=== PATIENT | female | born 1970 | race Caucasian/White ===

== ENCOUNTER 2020-02-25 07:53 | Inpatient (IN) ==
--- NOTE | 2020-02-25 08:17 | DR.URIAD ---
HPI Time Seen Time Seen by Provider: 02/25/20 08:17 HPI Comment HPI Comment: PATIENT RECENTLY DIAGNOSED WITH COVID 19, 5 DAYS AGO COMPLAINS OF INCREASING DYSPNEA X 2 DAYS ASSOCIATED WITH A DRY COUGH. PATIENT PLACED ON MEDROL DOSPAK WITH NO RELIEF, DENIES FEVER OR CHILLS OR CHEST PAIN. HAS MARKED EXERTIONAL DYSPNEA. Complaint Chief Complaint Doctors Comments: SHORTNESS OF BREATH, COVID POSITIVE COVID-19 Has patient experienced Coronavirus symptoms: Yes Quality Quality of Cough: Nonproductive Associated Signs and Symptoms Other Signs and Symptoms: Shortness of Breath PMH PMH Past Medical History Comment: NEGATIVE Surgical History: ROS Review of Systems Constitutional: See HPI, Malaise and Weakness Eyes: No Symptoms Reported ENTM: No Symptoms Reported Respiratoy: See HPI, Dry Cough and Short of Breath (MARKED EXERTIONAL DYSPNEA) Cardiovascular: No Symptoms Reported Gastrointestinal/Abdominal: No Symptoms Reported Genitourinary: No Symptoms Reported Neurological: No Symptoms Reported Musculoskeletal: No Symptoms Reported Integumentary: No Symptoms Reported Hematologic/Lymphatic: No Symptoms Reported Endocrine: No Symptoms Reported Psychiatric: No Symptoms Reported All Other Systems: Reviewed and Negative PE Vital Signs Vitals: Temperature 98.5 F Pulse Rate 86 Respiratory Rate 19 Blood Pressure 134/79 O2 Sat by Pulse Oximetry 91 General Limitations: Physical Limitation (WEAKNESS) General Appearance: Alert Head Head Exam: Normal Inspection Eyes Eye exam: Normal Appearance ENT ENT Exam: Normal Exam and Normal Oropharynx External Ear Exam: Normal External Inspection TM/Canal Exam: Bilateral: Normal Nose Exam: Normal Nose Exam Nasal Speculum Exam: Bilateral: Normal Mouth Exam: Normal Inspection Throat Exam: Normal Inspection Neck Neck Exam: Normal Inspection Chest Chest Inspection: Normal Inspection and Symmetric Chest Wall Rise Respiratory Respiratory Exam: Normal Lung Sounds Bilat and Respiratory Distress (THERE IS MILD TACHYPNEA, NO WHEEZES OR RHONCHI) Respiratory Exam: Bilateral: Clear to Auscultation Cardiovascular Cardiovascular Exam: Regular Rate, Normal Rhythm and Tachycardia Extremeties Extremities Exam: Normal Inspection and Full ROM Back Back Exam: Normal Inspection and Full ROM Neurologic Neurological Exam: Alert, Oriented X3 and CN II-XII Intact Psychiatric Psychiatric Exam: Normal Affect and Normal Mood Skin Skin Exam: Warm, Dry, Intact and Normal Color MDM Differential Diagnosis Differential Diagnosis: Influenza A, Influenza B and Pneumonia (COVID PNEUMONIA, PULMONARY EMBOLUS) COURSE Treatment Treatment: IV BOLUS NORMAL SALINE 1 LITER/HR, SOLUMEDROL 125MG IV, AFTER 2 SETS OF BLOOD CULTURES IV ROCEPHIN 1GM, ARTERIAL BLOOD GAS, SAT 83%, PO2-43, PLACED ON OXYGEN 2 LITERS, PULSE OX IMPROVED TO 92% Consultation Consultation Comments: DISCUSSED WITH DR POPE AT 1138 FOR INPATIENT ADMISSION ROR Labs Reviewed Result Diagrams: 03/03/20 05:30 03/03/20 05:30 Laboratory: 02/25/20 09:15 Blood Blood Culture - Final 02/25/20 08:55 Blood Blood Culture - Final WBC 8.3 X10^3/uL (3.6-10.0) 02/25/20 08:55 RBC 4.45 X10^6/uL (3.5-5.4) 02/25/20 08:55 Hgb 13.7 g/dL (12.0-16.0) 02/25/20 08:55 Hct 40.0 % (36.0-47.0) 02/25/20 08:55 MCV 89.8 fL (80.0-100.0) 02/25/20 08:55 MCH 30.8 pg (27.0-34.0) 02/25/20 08:55 MCHC 34.3 g/dL (33.0-35.0) 02/25/20 08:55 RDW 13.7 % (11.6-16.5) 02/25/20 08:55 Plt Count 354 X10^3/uL (150.0-450.0) 02/25/20 08:55 MPV 8.1 fL (7.4-11.0) 02/25/20 08:55 Neut % (Auto) 78.3 % (42.0-75.0) H 02/25/20 08:55 Lymph % (Auto) 15.4 % (21.0-51.0) L 02/25/20 08:55 [place] % (Auto) 5.9 % (0.0-13.0) 02/25/20 08:55 Eos % (Auto) 0.0 % (0.9-2.9) L 02/25/20 08:55 Baso % (Auto) 0.4 % (0.2-1.0) 02/25/20 08:55 Neut # (Auto) 6.5 x10^3/uL (2.2-4.8) H 02/25/20 08:55 Lymph # (Auto) 1.3 X10^3/uL (1.3-2.9) 02/25/20 08:55 [place] # (Auto) 0.5 x10^3/uL (0.3-0.8) 02/25/20 08:55 Eos # (Auto) 0.0 x10^3/uL (0.0-0.2) 02/25/20 08:55 Baso # (Auto) 0.0 X10^3/uL (0.0-0.1) 02/25/20 08:55 Absolute Nucleated RBC 0.1 /100WBC 02/25/20 08:55 D-Dimer 2.27 ug/ml (0.0-0.57) H* 02/25/20 09:15 Sample Site Rrad 02/25/20 08:35 ABG pH 7.490 (7.35-7.45) H 02/25/20 08:35 ABG pCO2 34.0 mmHg (35.0-45.0) L 02/25/20 08:35 ABG pO2 43.0 mmHg (80.0-100.0) L* 02/25/20 08:35 ABG HCO3 25.9 mmol/L (22-26) 02/25/20 08:35 ABG O2 Saturation 83.0 % (90-100) L* 02/25/20 08:35 ABG Base Excess 2.8 mmol/L (-2.0-2.0) H 02/25/20 08:35 Mason Test Pos 02/25/20 08:35 A-a Gradient 64.0 mmHg 02/25/20 08:35 FiO2 21.0 02/25/20 08:35 Blood Gas Comments Pt rishi well elj 02/25/20 08:35 Sodium 132 mmol/L (136-145) L 02/25/20 09:15 Corrected Sodium 132 mmol/L (136-145) L 02/25/20 09:15 Potassium 4.0 mmol/L (3.5-5.1) 02/25/20 09:15 Chloride 95 mmol/L (98-107) L 02/25/20 09:15 Carbon Dioxide 25.9 mmol/L (21-32) 02/25/20 09:15 BUN 12 mg/dL (7-18) 02/25/20 09:15 Creatinine 1.09 mg/dL (0.55-1.02) H 02/25/20 09:15 Est GFR (MDRD) Af Amer > 60 (>60) 02/25/20 09:15 Est GFR (MDRD) Non-Af 56 (>60) L 02/25/20 09:15 Glucose 113 mg/dL (65-99) H 02/25/20 09:15 Lactic Acid 1.7 mmol/L (0.4-2.0) 02/25/20 09:15 Calcium 9.4 mg/dL (8.5-10.1) 02/25/20 09:15 Corrected Calcium 10.4 mg/dL (8.5-10.1) H 02/25/20 09:15 Magnesium 1.9 mg/dL (1.7-2.9) 02/25/20 09:15 Total Bilirubin 0.40 mg/dL (0.2-1.0) 02/25/20 09:15 AST 51 Units/L (15-37) H 02/25/20 09:15 ALT 53 Units/L (12-78) 02/25/20 09:15 Alkaline Phosphatase 54 Units/L (46-116) 02/25/20 09:15 Troponin I < 0.02 ng/mL (0-1.5) 02/25/20 09:15 C-Reactive Protein 177.60 mg/L (0-3.0) H 02/25/20 09:15 Total Protein 7.8 g/dL (6.4-8.2) 02/25/20 09:15 Albumin 2.8 g/dL (3.4-5.0) L 02/25/20 09:15 Globulin 5.0 g/dL (2.5-4.5) H 02/25/20 09:15 Albumin/Globulin Ratio 0.6 Ratio (1.1-2.1) L 02/25/20 09:15 HCG, Qual Negative <10 mIU/mL 02/25/20 09:15 Influenza Type A (PCR) Negative (NEGATIVE) 02/25/20 08:50 Influenza Type B (PCR) Negative (NEGATIVE) 02/25/20 08:50 SARS CoV-2 RNA Rapid FALGUNI Positive (NEGATIVE) A 02/25/20 08:50 XRAY XRAY Interpreted by: Radiologist (portable chest xray consistent with bilateral scattered patchy airspace and nterstitial opacities consistent with covid 19, CTA OF CHEST CONSISTENT WITH GROUND GLASS OPACITIES, NO EVIDENDCE OF PULMONARY EMBOLISM) EKG Rate: 100 [place]: Normal Rhythm: NSR and ST (RATE 100) ST: Normal (NONSPECIFIC ST WAVE CHANGES INFERIORLY) Opioid Opioid Risk Tool Total: 0 Total Score Risk Category: Low Risk Copyright: Navi MCKAY predicting aberrant behaviors Diagnosis Discharge Problem: Pneumonia due to COVID-19 virus, Acute dyspnea Instructions Forms: Precautions for COVID19 Patient Portal Social Distancing
[2020-02-25] MEDS ORDERED: SOLU-Medrol 125 MG VIAL IVP ONE (08:25)
[2020-02-25] MEDS ORDERED: DUONEB 0.5 MG/3 MG (3 mL) NEB ONE ×2 (08:26→10:05)
[2020-02-25 08:29] VITALS: BMI 38.2
[2020-02-25] MEDS ORDERED: SOLU-Medrol 125 MG VIAL ONE (08:31)
[2020-02-25] MEDS ORDERED: NS 1000 ML 1,000 ML ONE ×2 (08:31→14:25)
[2020-02-25] MEDS: NS 1000 ML 1,000 ML IV ONE ×2 (08:39→08:40)
[2020-02-25 08:41] LABS: ABG BASE EXCESS 2.8 mmol/L (-2.0-2.0); ABG HCO3 25.9 mmol/L (22-26)
[2020-02-25 08:42] LABS: ABG ALLEN TEST POS
--- NOTE | 2020-02-25 08:54 | RAD ---
HISTORYCOVID, DYSPNEASTUDYCHEST, 1 VIEWCOMPARISONNoneTECHNIQUEAP view of the chestFINDINGSCardiac and mediastinal contours are within normal limits. Bilateral scattered patchy airspace and interstitial opacities. No definite pleural effusion or pneumothorax. Soft tissue attenuation limits evaluation.IMPRESSIONBilateral scattered patchy airspace and interstitial opacities consistent with COVID 19.Electronically signed by: Gus Maher (Feb 25, 2020 08:52:51)
[2020-02-25 09:31] LABS: BASOPHILS % (AUTO) 0.4 % (0.2-1.0); HEMOGLOBIN 13.7 g/dL (12.0-16.0); LYMPHOCYTES # (AUTO) 1.3 X10^3/uL (1.3-2.9); LYMPHOCYTES % (AUTO) 15.4 % (21.0-51.0); MEAN CORPUSCULAR HEMOGLOBIN 30.8 pg (27.0-34.0); MEAN CORPUSCULAR HGB CONC 34.3 g/dL (33.0-35.0); MEAN CORPUSCULAR VOLUME 89.8 fL (80.0-100.0); MEAN PLATELET VOLUME 8.1 fL (7.4-11.0); MONOCYTES # (AUTO) 0.5 x10^3/uL (0.3-0.8); MONOCYTES % (AUTO) 5.9 % (0.0-13.0); NEUTROPHILS # (AUTO) 6.5 x10^3/uL (2.2-4.8); NEUTROPHILS % (AUTO) 78.3 % (42.0-75.0); PLATELET COUNT 354 X10^3/uL (150.0-450.0); RED BLOOD COUNT 4.45 X10^6/uL (3.5-5.4); RED CELL DISTRIBUTION WIDTH 13.7 % (11.6-16.5); WHITE BLOOD COUNT 8.3 X10^3/uL (3.6-10.0)
[2020-02-25 09:37] LABS: SERUM PREGNANCY TEST, QUAL NEGATIVE <10 mIU/mL
[2020-02-25 09:45] LABS: ALANINE AMINOTRANSFERASE 53 Units/L (12-78); ALBUMIN 2.8 g/dL (3.4-5.0); ALKALINE PHOSPHATASE 54 Units/L (46-116); ASPARTATE AMINO TRANSFERASE 51 Units/L (15-37); BLOOD UREA NITROGEN 12 mg/dL (7-18); CALCIUM 9.4 mg/dL (8.5-10.1); CARBON DIOXIDE 25.9 mmol/L (21-32); CHLORIDE 95 mmol/L (98-107); COR CA(FOR HYPOALB) 10.4 mg/dL (8.5-10.1); COR NA(FOR HYPERGLY) 132 mmol/L (136-145); CREATININE 1.09 mg/dL (0.55-1.02); MAGNESIUM 1.9 mg/dL (1.7-2.9); SODIUM 132 mmol/L (136-145); TOTAL PROTEIN 7.8 g/dL (6.4-8.2); TROPONIN I < 0.02 ng/mL (0-1.5); eGFR NON BLACK RACES 56 (>60)
[2020-02-25 09:49] LABS: LACTIC ACID 1.7 mmol/L (0.4-2.0)
[2020-02-25] MEDS ORDERED: NS 100 ML IV 100 ML IV ONE ×2 (10:11→14:45)
--- NOTE | 2020-02-25 11:04 | CT ---
HISTORYReason For StudySTUDYCTA CHESTBARTON COUNTY MEM[facility]IAL [facility]OSPITALPARGrand [facility]t [facility] day.TECHNIQUEMultiple axial images of the abdomen and pelvis were obtained from the lung bases to the pubic symphysis after the administration of IV contrast. Dose reduction techniques including Automated Exposure Control (AEC) and adjustment of mA and kV were utilized.FINDINGSThe visualized thyroid gland appears benign. Thoracic aorta is normal in caliber and patent without atherosclerotic disease. The pulmonary artery is normal in caliber centrally. No filling defect identified to suggest pulmonary embolism. The heart is normal in size. No pericardial effusion. No pathologic adenopathy in the thorax. Cholelithiasis without other evidence of cholecystitis. Atrophic right kidney with compensatory hypertrophy of the left. No acute osseous abnormality. Mild scoliosis. The trachea and mainstem bronchi appear patent. Moderate scattered ground-glass opacities with crazy paving pattern. No pleural effusion or pneumothorax.IMPRESSIONNegative for pulmonary embolism. Bilateral ground-glass opacities in a crazy paving pattern nonspecific but consistent with COVID 19.Electronically signed by: Gus Maher (Feb 25, 2020 11:03:15)
[2020-02-25] MEDS ORDERED: IVERMECTIN PO ONE (13:34)
[2020-02-25] MEDS ORDERED: REMDESIVIR 200 MG in NS 250 ML IV 250 ML IV NR (13:34)
[2020-02-25] MEDS ORDERED: REMDESIVIR IV ONE ×2 (14:25)
[2020-02-25] MEDS ORDERED: NS 250 ML IV 250 ML IV ONE (14:26)
[2020-02-25] MEDS: NS 1000 ML 1,000 ML IV SCH (14:30)
[2020-02-25] MEDS: VITAMIN D (1.25MG) PO SCH (14:57)
[2020-02-25] MEDS: ASCORBIC ACID INJ MULTI-DOSE VIAL 1,500 MG in NS 100 ML IV 100 ML IV SCH ×2 (14:59→21:30)
[2020-02-25] MEDS ORDERED: PEPCID TAB 40 MG ONE (21:26)
[2020-02-25] MEDS ORDERED: VIBRAMYCIN PO ONE (21:26)
[2020-02-25] MEDS ORDERED: LOVENOX INJ 30 MG SYR SC ONE (21:26)
[2020-02-25] MEDS ORDERED: ZINC SULFATE ONE (21:26)
[2020-02-25] MEDS ORDERED: THIAMINE HCL INJ ONE (21:26)
[2020-02-25] MEDS ORDERED: NS 50 ML IV 50 ML IV ONE (21:27)
[2020-02-25] MEDS: ZINC SULFATE PO SCH (21:30)
[2020-02-25] MEDS: VIBRAMYCIN PO SCH (21:31)
[2020-02-25] MEDS: THIAMINE HCL INJ IVP SCH (21:31)
[2020-02-25] MEDS: PEPCID TAB 40 MG PO SCH (21:32)
[2020-02-25] MEDS: LOVENOX INJ 30 MG SYR SC SCH (21:32)
[2020-02-26 01:02] LABS: BILIRUBIN,URINE NEGATIVE (NEGATIVE); BLOOD/HEMOGLOBIN,URINE 2+ (NEGATIVE); GLUCOSE, URINE NEGATIVE (NEGATIVE); KETONES,URINE NEGATIVE (NEGATIVE); LEUKOCYTE ESTERASE ,URINE 3+ (NEGATIVE); NITRITES,URINE NEGATIVE (NEGATIVE); PROTEIN,URINE 2+ (NEGATIVE); UROBILINOGEN,URINE NORMAL (NORMAL)
[2020-02-26 01:09] LABS: APPEARANCE,URINE CLOUDY (CLEAR); BACTERIA,URINE 4+ /HPF (NEGATIVE); COLOR,URINE STRAW (YELLOW); RBC,URINE NONE SEEN /HPF (0-3); SQUAMOUS EPITHELIAL CELL,UR MODERATE /HPF (NEGATIVE)
[2020-02-26] MEDS ORDERED: NS 1000 ML 1,000 ML ONE ×2 (02:22→17:45)
[2020-02-26] MEDS ORDERED: NS 50 ML IV 50 ML IV ONE ×2 (02:24→19:28)
[2020-02-26] MEDS: NS 1000 ML 1,000 ML IV SCH ×2 (02:25→17:30)
[2020-02-26] MEDS: ASCORBIC ACID INJ MULTI-DOSE VIAL 1,500 MG in NS 100 ML IV 100 ML IV SCH ×4 (03:00→20:33)
[2020-02-26 07:23] LABS: BASOPHILS % (AUTO) 0.3 % (0.2-1.0); HEMATOCRIT 34.5 % (36.0-47.0); HEMOGLOBIN 11.6 g/dL (12.0-16.0); LYMPHOCYTES # (AUTO) 1.6 X10^3/uL (1.3-2.9); LYMPHOCYTES % (AUTO) 18.6 % (21.0-51.0); MEAN CORPUSCULAR HEMOGLOBIN 30.4 pg (27.0-34.0); MEAN CORPUSCULAR HGB CONC 33.7 g/dL (33.0-35.0); MEAN CORPUSCULAR VOLUME 90.2 fL (80.0-100.0); MEAN PLATELET VOLUME 7.9 fL (7.4-11.0); MONOCYTES # (AUTO) 0.6 x10^3/uL (0.3-0.8); MONOCYTES % (AUTO) 6.5 % (0.0-13.0); NEUTROPHILS # (AUTO) 6.6 x10^3/uL (2.2-4.8); NEUTROPHILS % (AUTO) 74.6 % (42.0-75.0); PLATELET COUNT 344 X10^3/uL (150.0-450.0); RED BLOOD COUNT 3.83 X10^6/uL (3.5-5.4); RED CELL DISTRIBUTION WIDTH 13.5 % (11.6-16.5); WHITE BLOOD COUNT 8.8 X10^3/uL (3.6-10.0)
[2020-02-26 07:40] LABS: ALANINE AMINOTRANSFERASE 45 Units/L (12-78); ALBUMIN 2.3 g/dL (3.4-5.0); ALKALINE PHOSPHATASE 47 Units/L (46-116); ASPARTATE AMINO TRANSFERASE 42 Units/L (15-37); BLOOD UREA NITROGEN 13 mg/dL (7-18); CALCIUM 8.5 mg/dL (8.5-10.1); CARBON DIOXIDE 24.1 mmol/L (21-32); CHLORIDE 105 mmol/L (98-107); COR CA(FOR HYPOALB) 9.9 mg/dL (8.5-10.1); CREATININE 0.97 mg/dL (0.55-1.02); SODIUM 139 mmol/L (136-145); TOTAL PROTEIN 6.5 g/dL (6.4-8.2); eGFR NON BLACK RACES > 60 (>60)
[2020-02-26] MEDS ORDERED: VIBRAMYCIN PO ONE (08:16)
[2020-02-26] MEDS ORDERED: THIAMINE HCL INJ ONE (08:16)
[2020-02-26] MEDS ORDERED: TRICOR TAB 160 MG ONE (08:17)
[2020-02-26] MEDS ORDERED: LIPITOR TAB 80 MG ONE (08:17)
[2020-02-26] MEDS ORDERED: ZINC SULFATE ONE (08:17)
[2020-02-26] MEDS ORDERED: DECADRON TAB ONE ×2 (08:17→08:28)
[2020-02-26] MEDS ORDERED: PEPCID TAB 40 MG ONE (08:18)
[2020-02-26] MEDS ORDERED: LOVENOX INJ 30 MG SYR SC ONE (08:18)
[2020-02-26] MEDS ORDERED: NS 100 ML IV 100 ML IV ONE ×2 (08:18→15:44)
[2020-02-26] MEDS ORDERED: ASCORBIC ACID INJ MULTI-DOSE VIAL IV ONE ×3 (08:21→19:30)
[2020-02-26] MEDS ORDERED: VITAMIN A PO SCH (09:00)
[2020-02-26] MEDS: THIAMINE HCL INJ IVP SCH ×2 (09:54→20:35)
[2020-02-26] MEDS: ZINC SULFATE PO SCH ×2 (09:55→20:34)
[2020-02-26] MEDS: VITAMIN D (1.25MG) PO SCH (09:55)
[2020-02-26] MEDS: PEPCID TAB 40 MG PO SCH ×2 (09:56→20:35)
[2020-02-26] MEDS: VITAMIN A PO SCH (09:56)
[2020-02-26] MEDS: TRICOR TAB 160 MG PO SCH (09:56)
[2020-02-26] MEDS: VIBRAMYCIN PO SCH ×2 (09:56→20:34)
[2020-02-26] MEDS: LOVENOX INJ 30 MG SYR SC SCH ×2 (09:57→21:00)
[2020-02-26] MEDS: LIPITOR TAB 80 MG PO SCH (09:59)
[2020-02-26] MEDS: DECADRON TAB PO SCH (10:01)
[2020-02-26] MEDS ORDERED: REMDESIVIR IV ONE (10:03)
[2020-02-26] MEDS ORDERED: NS 250 ML IV 250 ML IV ONE (10:04)
[2020-02-26] MEDS: REMDESIVIR 100 MG in NS 250 ML IV 250 ML IV SCH (10:08)
[2020-02-26] MEDS ORDERED: XANAX PO PRN (13:43)
[2020-02-26] MEDS ORDERED: XANAX ONE (14:13)
[2020-02-26] MEDS: SYNTHROID 125 mcg TAB PO SCH (15:58)
[2020-02-26] MEDS ORDERED: PROVENTIL NEB TX 0.083% 2.5MG/ 3ML NEB SCH (17:00)
[2020-02-26] MEDS: PROVENTIL NEB TX 0.083% 2.5MG/ 3ML NEB SCH (21:00)
[2020-02-26] MEDS: PULMICORT NEB TX 0.5 MG NEB SCH (21:00)
[2020-02-27] MEDS ORDERED: ASCORBIC ACID INJ MULTI-DOSE VIAL IV ONE ×4 (02:09→19:11)
[2020-02-27] MEDS ORDERED: NS 100 ML IV 100 ML IV ONE ×4 (02:09→19:09)
[2020-02-27] MEDS: ASCORBIC ACID INJ MULTI-DOSE VIAL 1,500 MG in NS 100 ML IV 100 ML IV SCH ×4 (02:09→20:04)
[2020-02-27] MEDS ORDERED: NS 1000 ML 1,000 ML ONE ×2 (05:20→22:33)
[2020-02-27] MEDS: NS 1000 ML 1,000 ML IV SCH ×2 (05:29→13:43)
[2020-02-27 06:53] LABS: BASOPHILS % (AUTO) 0.4 % (0.2-1.0); HEMATOCRIT 34.2 % (36.0-47.0); HEMOGLOBIN 11.5 g/dL (12.0-16.0); LYMPHOCYTES # (AUTO) 1.9 X10^3/uL (1.3-2.9); LYMPHOCYTES % (AUTO) 18.6 % (21.0-51.0); MEAN CORPUSCULAR HEMOGLOBIN 30.2 pg (27.0-34.0); MEAN CORPUSCULAR HGB CONC 33.8 g/dL (33.0-35.0); MEAN CORPUSCULAR VOLUME 89.6 fL (80.0-100.0); MEAN PLATELET VOLUME 7.9 fL (7.4-11.0); MONOCYTES # (AUTO) 0.6 x10^3/uL (0.3-0.8); MONOCYTES % (AUTO) 6.3 % (0.0-13.0); NEUTROPHILS # (AUTO) 7.7 x10^3/uL (2.2-4.8); NEUTROPHILS % (AUTO) 74.7 % (42.0-75.0); PLATELET COUNT 361 X10^3/uL (150.0-450.0); RED BLOOD COUNT 3.81 X10^6/uL (3.5-5.4); RED CELL DISTRIBUTION WIDTH 13.7 % (11.6-16.5); WHITE BLOOD COUNT 10.3 X10^3/uL (3.6-10.0)
[2020-02-27 07:07] LABS: ALANINE AMINOTRANSFERASE 45 Units/L (12-78); ALBUMIN 2.1 g/dL (3.4-5.0); ALKALINE PHOSPHATASE 48 Units/L (46-116); ASPARTATE AMINO TRANSFERASE 40 Units/L (15-37); BLOOD UREA NITROGEN 16 mg/dL (7-18); CALCIUM 8.2 mg/dL (8.5-10.1); CARBON DIOXIDE 23.1 mmol/L (21-32); CHLORIDE 106 mmol/L (98-107); COR CA(FOR HYPOALB) 9.7 mg/dL (8.5-10.1); CREATININE 1.08 mg/dL (0.55-1.02); SODIUM 139 mmol/L (136-145); eGFR NON BLACK RACES 57 (>60)
[2020-02-27] MEDS ORDERED: VIBRAMYCIN PO ONE ×2 (08:30→19:08)
[2020-02-27] MEDS ORDERED: DECADRON TAB ONE (08:30)
[2020-02-27] MEDS ORDERED: LIPITOR TAB 80 MG ONE (08:30)
[2020-02-27] MEDS ORDERED: THIAMINE HCL INJ ONE ×2 (08:30→19:08)
[2020-02-27] MEDS ORDERED: PEPCID TAB 40 MG ONE ×2 (08:31→19:09)
[2020-02-27] MEDS ORDERED: TRICOR TAB 160 MG ONE (08:31)
[2020-02-27] MEDS ORDERED: ZINC SULFATE ONE ×2 (08:31→19:09)
[2020-02-27] MEDS ORDERED: REMDESIVIR IV ONE (08:31)
[2020-02-27] MEDS ORDERED: LOVENOX INJ 30 MG SYR SC ONE ×2 (08:31→19:09)
[2020-02-27] MEDS ORDERED: NS 250 ML IV 250 ML IV ONE (08:34)
[2020-02-27] MEDS: ZINC SULFATE PO SCH ×2 (09:29→20:01)
[2020-02-27] MEDS: REMDESIVIR 100 MG in NS 250 ML IV 250 ML IV SCH (09:30)
[2020-02-27] MEDS: THIAMINE HCL INJ IVP SCH ×2 (09:30→20:01)
[2020-02-27] MEDS: VITAMIN A PO SCH (09:30)
[2020-02-27] MEDS: VITAMIN D3 125 mcg (5,000 UNITS) PO SCH (09:30)
[2020-02-27] MEDS: PEPCID TAB 40 MG PO SCH ×2 (09:31→20:03)
[2020-02-27] MEDS: DECADRON TAB PO SCH (09:31)
[2020-02-27] MEDS: VIBRAMYCIN PO SCH ×2 (09:31→20:01)
[2020-02-27] MEDS: TRICOR TAB 160 MG PO SCH (09:31)
[2020-02-27] MEDS: LOVENOX INJ 30 MG SYR SC SCH ×2 (09:32→20:02)
[2020-02-27] MEDS: LIPITOR TAB 80 MG PO SCH (09:32)
[2020-02-27] MEDS ORDERED: IVERMECTIN ONE (10:45)
[2020-02-27] MEDS: IVERMECTIN PO SCH (10:47)
[2020-02-27] MEDS: SYNTHROID 125 mcg TAB PO SCH (20:00)
[2020-02-27] MEDS: PROVENTIL NEB TX 0.083% 2.5MG/ 3ML NEB SCH (21:00)
[2020-02-27] MEDS: PULMICORT NEB TX 0.5 MG NEB SCH (21:00)
[2020-02-28] MEDS: NS 1000 ML 1,000 ML IV SCH ×2 (00:08→14:46)
[2020-02-28] MEDS ORDERED: NS 100 ML IV 100 ML IV ONE ×2 (01:22→07:57)
[2020-02-28] MEDS ORDERED: ASCORBIC ACID INJ MULTI-DOSE VIAL IV ONE ×2 (01:23→07:53)
[2020-02-28] MEDS: ASCORBIC ACID INJ MULTI-DOSE VIAL 1,500 MG in NS 100 ML IV 100 ML IV SCH ×4 (02:09→21:25)
[2020-02-28] MEDS ORDERED: VIBRAMYCIN PO ONE (07:51)
[2020-02-28] MEDS ORDERED: PEPCID TAB 40 MG ONE (07:52)
[2020-02-28] MEDS ORDERED: DECADRON TAB ONE (07:52)
[2020-02-28] MEDS ORDERED: LIPITOR TAB 80 MG ONE (07:52)
[2020-02-28] MEDS ORDERED: THIAMINE HCL INJ ONE (07:52)
[2020-02-28] MEDS ORDERED: TRICOR TAB 160 MG ONE (07:52)
[2020-02-28] MEDS ORDERED: ZINC SULFATE ONE (07:52)
[2020-02-28] MEDS ORDERED: LOVENOX INJ 30 MG SYR SC ONE (07:53)
[2020-02-28] MEDS: DECADRON TAB PO SCH (08:01)
[2020-02-28] MEDS: LIPITOR TAB 80 MG PO SCH (08:02)
[2020-02-28] MEDS: LOVENOX INJ 30 MG SYR SC SCH ×2 (08:02→21:25)
[2020-02-28] MEDS: PEPCID TAB 40 MG PO SCH ×2 (08:03→21:25)
[2020-02-28] MEDS: THIAMINE HCL INJ IVP SCH ×2 (08:03→21:25)
[2020-02-28] MEDS: VIBRAMYCIN PO SCH ×2 (08:04→21:25)
[2020-02-28] MEDS: TRICOR TAB 160 MG PO SCH (08:04)
[2020-02-28] MEDS: ZINC SULFATE PO SCH ×2 (08:04→21:25)
[2020-02-28] MEDS: VITAMIN D3 125 mcg (5,000 UNITS) PO SCH (08:05)
[2020-02-28] MEDS: VITAMIN A PO SCH (08:05)
[2020-02-28] MEDS: PROVENTIL NEB TX 0.083% 2.5MG/ 3ML NEB SCH ×2 (08:30→21:05)
[2020-02-28] MEDS: PULMICORT NEB TX 0.5 MG NEB SCH ×2 (08:30→21:05)
[2020-02-28] MEDS: REMDESIVIR 100 MG in NS 250 ML IV 250 ML IV SCH (11:25)
[2020-02-28] MEDS: SYNTHROID 125 mcg TAB PO SCH (17:22)
[2020-02-29] MEDS: ASCORBIC ACID INJ MULTI-DOSE VIAL 1,500 MG in NS 100 ML IV 100 ML IV SCH ×4 (03:55→22:00)
--- NOTE | 2020-02-29 05:32 | RAD ---
PROCEDURE: Chest X-ray 1 View .HISTORY: COVID+ .TECHNIQUE: AP view .COMPARISON: 02/25/2020.TECHNICAL QUALITY: Satisfactory .FINDINGS:Unchanged cardiomediastinal silhouette.Increased consolidation bilaterally consistent with increasing pneumonia with no pleural fluid or pneumothorax with new involvement of the right upper lobe and increased at both lung bases since yesterday.IMPRESSION:Increasing bilateral pneumonia.Electronically signed by: Greg Blackman (Feb 29, 2020 05:30:24)
[2020-02-29] MEDS: NS 1000 ML 1,000 ML IV SCH ×3 (06:44→22:17)
[2020-02-29 07:05] LABS: BASOPHILS % (AUTO) 0.3 % (0.2-1.0); EOSINOPHILS % (AUTO) 0.1 % (0.9-2.9); HEMATOCRIT 33.7 % (36.0-47.0); HEMOGLOBIN 11.4 g/dL (12.0-16.0); LYMPHOCYTES # (AUTO) 1.7 X10^3/uL (1.3-2.9); LYMPHOCYTES % (AUTO) 18.8 % (21.0-51.0); MEAN CORPUSCULAR HEMOGLOBIN 30.3 pg (27.0-34.0); MEAN CORPUSCULAR HGB CONC 33.8 g/dL (33.0-35.0); MEAN CORPUSCULAR VOLUME 89.5 fL (80.0-100.0); MEAN PLATELET VOLUME 7.8 fL (7.4-11.0); MONOCYTES # (AUTO) 0.6 x10^3/uL (0.3-0.8); MONOCYTES % (AUTO) 6.4 % (0.0-13.0); NEUTROPHILS # (AUTO) 6.5 x10^3/uL (2.2-4.8); NEUTROPHILS % (AUTO) 74.4 % (42.0-75.0); PLATELET COUNT 370 X10^3/uL (150.0-450.0); RED BLOOD COUNT 3.76 X10^6/uL (3.5-5.4); RED CELL DISTRIBUTION WIDTH 13.8 % (11.6-16.5); WHITE BLOOD COUNT 8.8 X10^3/uL (3.6-10.0)
[2020-02-29 07:26] LABS: ALANINE AMINOTRANSFERASE 68 Units/L (12-78); ALKALINE PHOSPHATASE 48 Units/L (46-116); ASPARTATE AMINO TRANSFERASE 50 Units/L (15-37); BLOOD UREA NITROGEN 14 mg/dL (7-18); CALCIUM 8.3 mg/dL (8.5-10.1); CARBON DIOXIDE 25.6 mmol/L (21-32); CHLORIDE 108 mmol/L (98-107); COR CA(FOR HYPOALB) 9.9 mg/dL (8.5-10.1); COR NA(FOR HYPERGLY) 142 mmol/L (136-145); CREATININE 0.95 mg/dL (0.55-1.02); SODIUM 142 mmol/L (136-145); TOTAL PROTEIN 5.9 g/dL (6.4-8.2); eGFR NON BLACK RACES > 60 (>60)
[2020-02-29 07:51] LABS: BAND NEUTROPHILS % 4 % (0-10); PLATELET MORPHOLOGY COMMENT NORMAL (NORMAL)
[2020-02-29] MEDS ORDERED: REMDESIVIR IV ONE (08:26)
[2020-02-29] MEDS: REMDESIVIR 100 MG in NS 250 ML IV 250 ML IV SCH (09:43)
[2020-02-29] MEDS: DECADRON TAB PO SCH (09:44)
[2020-02-29] MEDS: LIPITOR TAB 80 MG PO SCH (09:44)
[2020-02-29] MEDS: PEPCID TAB 40 MG PO SCH ×2 (09:45→22:00)
[2020-02-29] MEDS: LOVENOX INJ 30 MG SYR SC SCH ×2 (09:45→22:03)
[2020-02-29] MEDS: TRICOR TAB 160 MG PO SCH (09:46)
[2020-02-29] MEDS: VIBRAMYCIN PO SCH ×2 (09:46→22:00)
[2020-02-29] MEDS: VITAMIN A PO SCH (09:47)
[2020-02-29] MEDS: THIAMINE HCL INJ IVP SCH ×2 (09:49→22:00)
[2020-02-29] MEDS: ZINC SULFATE PO SCH ×2 (09:49→22:00)
[2020-02-29] MEDS: VITAMIN D3 125 mcg (5,000 UNITS) PO SCH (09:49)
[2020-02-29] MEDS: PULMICORT NEB TX 0.5 MG NEB SCH ×2 (11:21→20:20)
[2020-02-29] MEDS: PROVENTIL NEB TX 0.083% 2.5MG/ 3ML NEB SCH ×2 (11:21→20:20)
[2020-02-29] MEDS ORDERED: NS 100 ML IV 100 ML IV ONE (14:41)
[2020-02-29] MEDS: IVERMECTIN PO SCH (22:03)
[2020-03-01] MEDS: ASCORBIC ACID INJ MULTI-DOSE VIAL 1,500 MG in NS 100 ML IV 100 ML IV SCH ×4 (04:00→20:43)
[2020-03-01 06:50] LABS: BASOPHILS % (AUTO) 0.6 % (0.2-1.0); HEMATOCRIT 33.9 % (36.0-47.0); HEMOGLOBIN 11.6 g/dL (12.0-16.0); LYMPHOCYTES # (AUTO) 1.9 X10^3/uL (1.3-2.9); LYMPHOCYTES % (AUTO) 23.5 % (21.0-51.0); MEAN CORPUSCULAR HEMOGLOBIN 30.5 pg (27.0-34.0); MEAN CORPUSCULAR HGB CONC 34.2 g/dL (33.0-35.0); MEAN CORPUSCULAR VOLUME 89.1 fL (80.0-100.0); MEAN PLATELET VOLUME 8.2 fL (7.4-11.0); MONOCYTES # (AUTO) 0.4 x10^3/uL (0.3-0.8); MONOCYTES % (AUTO) 5.3 % (0.0-13.0); NEUTROPHILS # (AUTO) 5.7 x10^3/uL (2.2-4.8); NEUTROPHILS % (AUTO) 70.6 % (42.0-75.0); PLATELET COUNT 379 X10^3/uL (150.0-450.0); RED CELL DISTRIBUTION WIDTH 14.2 % (11.6-16.5)
[2020-03-01 07:11] LABS: ALANINE AMINOTRANSFERASE 59 Units/L (12-78); ALKALINE PHOSPHATASE 52 Units/L (46-116); ASPARTATE AMINO TRANSFERASE 44 Units/L (15-37); BLOOD UREA NITROGEN 13 mg/dL (7-18); CALCIUM 8.4 mg/dL (8.5-10.1); CARBON DIOXIDE 26.9 mmol/L (21-32); CHLORIDE 106 mmol/L (98-107); CREATININE 0.94 mg/dL (0.55-1.02); SODIUM 140 mmol/L (136-145); eGFR NON BLACK RACES > 60 (>60)
[2020-03-01] MEDS: SYNTHROID 125 mcg TAB PO SCH ×2 (07:40→07:50)
[2020-03-01] MEDS: ZINC SULFATE PO SCH ×2 (08:00→20:45)
[2020-03-01] MEDS: VITAMIN A PO SCH (08:00)
[2020-03-01] MEDS: LIPITOR TAB 80 MG PO SCH (08:00)
[2020-03-01] MEDS: DECADRON TAB PO SCH (08:00)
[2020-03-01] MEDS: PEPCID TAB 40 MG PO SCH ×2 (08:00→20:43)
[2020-03-01] MEDS: VITAMIN D3 125 mcg (5,000 UNITS) PO SCH (08:00)
[2020-03-01] MEDS: THIAMINE HCL INJ IVP SCH ×2 (08:00→20:48)
[2020-03-01] MEDS: VIBRAMYCIN PO SCH ×2 (08:00→20:45)
[2020-03-01] MEDS: LOVENOX INJ 30 MG SYR SC SCH ×2 (08:58→20:45)
[2020-03-01] MEDS: TRICOR TAB 160 MG PO SCH (08:59)
[2020-03-01] MEDS: NS 1000 ML 1,000 ML IV SCH ×3 (09:02→21:00)
[2020-03-01] MEDS: PROVENTIL NEB TX 0.083% 2.5MG/ 3ML NEB SCH ×2 (09:48→20:35)
[2020-03-01] MEDS: PULMICORT NEB TX 0.5 MG NEB SCH ×3 (11:10→23:40)
[2020-03-02] MEDS: ASCORBIC ACID INJ MULTI-DOSE VIAL 1,500 MG in NS 100 ML IV 100 ML IV SCH ×4 (03:00→20:59)
[2020-03-02 06:24] LABS: ALANINE AMINOTRANSFERASE 67 Units/L (12-78); ALBUMIN 2.2 g/dL (3.4-5.0); ALKALINE PHOSPHATASE 54 Units/L (46-116); ASPARTATE AMINO TRANSFERASE 58 Units/L (15-37); BLOOD UREA NITROGEN 17 mg/dL (7-18); CALCIUM 8.5 mg/dL (8.5-10.1); CARBON DIOXIDE 29.2 mmol/L (21-32); CHLORIDE 106 mmol/L (98-107); COR CA(FOR HYPOALB) 9.9 mg/dL (8.5-10.1); CREATININE 0.99 mg/dL (0.55-1.02); SODIUM 140 mmol/L (136-145); eGFR NON BLACK RACES > 60 (>60)
--- NOTE | 2020-03-02 06:31 | RAD ---
HISTORYFollow-up COVID-19STUDYChest AP [id number] heart remains enlarged. No congestive heart failure is noted. Bilateral ground-glass and alveolar infiltrates predominantly peripheral in location involve the upper and lower lobe and are unchanged. No pleural effusions are identified. Bony thorax is unremarkable.IMPRESSIONNo change bilateral predominantly peripheral ground-glass and alveolar infiltrates when compared with the prior examinationElectronically signed by: EDITH LAND (Mar 02, 2020 06:30:09)
[2020-03-02] MEDS: SYNTHROID 125 mcg TAB PO SCH (07:00)
[2020-03-02] MEDS: NS 1000 ML 1,000 ML IV SCH ×3 (08:30→21:55)
[2020-03-02] MEDS: TRICOR TAB 160 MG PO SCH (09:00)
[2020-03-02] MEDS: PEPCID TAB 40 MG PO SCH ×2 (09:00→21:01)
[2020-03-02] MEDS: ZINC SULFATE PO SCH ×2 (09:00→21:01)
[2020-03-02] MEDS: VIBRAMYCIN PO SCH ×2 (09:00→21:01)
[2020-03-02] MEDS: LOVENOX INJ 30 MG SYR SC SCH ×2 (09:00→21:02)
[2020-03-02] MEDS: THIAMINE HCL INJ IVP SCH ×2 (09:00→21:04)
[2020-03-02] MEDS: VITAMIN D3 125 mcg (5,000 UNITS) PO SCH (09:00)
[2020-03-02] MEDS: LIPITOR TAB 80 MG PO SCH (09:00)
[2020-03-02] MEDS: VITAMIN A PO SCH (09:00)
[2020-03-02] MEDS: PROVENTIL NEB TX 0.083% 2.5MG/ 3ML NEB SCH ×2 (11:18→21:20)
[2020-03-02] MEDS: PULMICORT NEB TX 0.5 MG NEB SCH ×2 (11:19→21:20)
[2020-03-03] MEDS: ASCORBIC ACID INJ MULTI-DOSE VIAL 1,500 MG in NS 100 ML IV 100 ML IV SCH ×2 (02:46→09:36)
[2020-03-03 04:55] LABS: ABG ALLEN TEST POS; ABG BASE EXCESS 4.2 mmol/L (-2.0-2.0); ABG HCO3 28.4 mmol/L (22-26)
[2020-03-03] MEDS: SYNTHROID 125 mcg TAB PO SCH (06:14)
[2020-03-03 06:22] LABS: BASOPHILS % (AUTO) 0.2 % (0.2-1.0); EOSINOPHILS # (AUTO) 0.2 x10^3/uL (0.0-0.2); EOSINOPHILS % (AUTO) 2.3 % (0.9-2.9); HEMATOCRIT 35.4 % (36.0-47.0); HEMOGLOBIN 11.9 g/dL (12.0-16.0); MEAN CORPUSCULAR HEMOGLOBIN 30.1 pg (27.0-34.0); MEAN CORPUSCULAR HGB CONC 33.7 g/dL (33.0-35.0); MEAN CORPUSCULAR VOLUME 89.3 fL (80.0-100.0); MEAN PLATELET VOLUME 8.2 fL (7.4-11.0); MONOCYTES # (AUTO) 0.6 x10^3/uL (0.3-0.8); MONOCYTES % (AUTO) 7.5 % (0.0-13.0); NEUTROPHILS # (AUTO) 4.5 x10^3/uL (2.2-4.8); PLATELET COUNT 349 X10^3/uL (150.0-450.0); RED BLOOD COUNT 3.96 X10^6/uL (3.5-5.4); RED CELL DISTRIBUTION WIDTH 14.1 % (11.6-16.5); WHITE BLOOD COUNT 8.3 X10^3/uL (3.6-10.0)
[2020-03-03 06:44] LABS: ALANINE AMINOTRANSFERASE 61 Units/L (12-78); ALKALINE PHOSPHATASE 56 Units/L (46-116); ASPARTATE AMINO TRANSFERASE 54 Units/L (15-37); BLOOD UREA NITROGEN 16 mg/dL (7-18); CALCIUM 8.2 mg/dL (8.5-10.1); CARBON DIOXIDE 25.3 mmol/L (21-32); CHLORIDE 107 mmol/L (98-107); COR CA(FOR HYPOALB) 9.8 mg/dL (8.5-10.1); SODIUM 141 mmol/L (136-145); TOTAL PROTEIN 5.6 g/dL (6.4-8.2); eGFR NON BLACK RACES > 60 (>60)
[2020-03-03] MEDS: LIPITOR TAB 80 MG PO SCH (09:44)
[2020-03-03] MEDS: PROVENTIL NEB TX 0.083% 2.5MG/ 3ML NEB SCH ×2 (09:45→21:45)
[2020-03-03] MEDS: LOVENOX INJ 30 MG SYR SC SCH ×2 (09:51→22:27)
[2020-03-03] MEDS: PEPCID TAB 40 MG PO SCH ×2 (09:52→21:01)
[2020-03-03] MEDS: TRICOR TAB 160 MG PO SCH (09:54)
[2020-03-03] MEDS: THIAMINE HCL INJ IVP SCH (09:54)
[2020-03-03] MEDS: VIBRAMYCIN PO SCH (09:54)
[2020-03-03] MEDS: VITAMIN A PO SCH (09:56)
[2020-03-03] MEDS: VITAMIN D3 125 mcg (5,000 UNITS) PO SCH (09:57)
[2020-03-03] MEDS: ZINC SULFATE PO SCH ×2 (09:57→21:02)
[2020-03-03] MEDS: PULMICORT NEB TX 0.5 MG NEB SCH ×2 (12:00→21:45)
[2020-03-03] MEDS: NS 1000 ML 1,000 ML IV SCH (15:31)
[2020-03-03] MEDS: VITAMIN C PO SCH (21:01)
[2020-03-04] MEDS: SYNTHROID 125 mcg TAB PO SCH (06:09)
[2020-03-04 07:00] LABS: BASOPHILS % (AUTO) 0.2 % (0.2-1.0); EOSINOPHILS # (AUTO) 0.2 x10^3/uL (0.0-0.2); EOSINOPHILS % (AUTO) 2.6 % (0.9-2.9); HEMATOCRIT 34.6 % (36.0-47.0); HEMOGLOBIN 11.6 g/dL (12.0-16.0); LYMPHOCYTES # (AUTO) 2.5 X10^3/uL (1.3-2.9); LYMPHOCYTES % (AUTO) 34.9 % (21.0-51.0); MEAN CORPUSCULAR HEMOGLOBIN 30.2 pg (27.0-34.0); MEAN CORPUSCULAR HGB CONC 33.6 g/dL (33.0-35.0); MEAN CORPUSCULAR VOLUME 89.9 fL (80.0-100.0); MEAN PLATELET VOLUME 8.2 fL (7.4-11.0); MONOCYTES # (AUTO) 0.6 x10^3/uL (0.3-0.8); MONOCYTES % (AUTO) 8.1 % (0.0-13.0); NEUTROPHILS # (AUTO) 3.9 x10^3/uL (2.2-4.8); NEUTROPHILS % (AUTO) 54.2 % (42.0-75.0); PLATELET COUNT 343 X10^3/uL (150.0-450.0); RED BLOOD COUNT 3.85 X10^6/uL (3.5-5.4); WHITE BLOOD COUNT 7.3 X10^3/uL (3.6-10.0)
[2020-03-04] MEDS: PULMICORT NEB TX 0.5 MG NEB SCH ×2 (09:50→21:45)
[2020-03-04] MEDS: PROVENTIL NEB TX 0.083% 2.5MG/ 3ML NEB SCH ×2 (09:50→21:45)
[2020-03-04] MEDS: VITAMIN C PO SCH ×2 (10:00→21:17)
[2020-03-04] MEDS: TRICOR TAB 160 MG PO SCH (10:00)
[2020-03-04] MEDS: VITAMIN D3 125 mcg (5,000 UNITS) PO SCH (10:00)
[2020-03-04] MEDS: LIPITOR TAB 80 MG PO SCH (10:00)
[2020-03-04] MEDS: PEPCID TAB 40 MG PO SCH ×2 (10:00→21:17)
[2020-03-04] MEDS: VITAMIN A PO SCH (10:00)
[2020-03-04] MEDS: ZINC SULFATE PO SCH ×2 (10:00→21:17)
[2020-03-04] MEDS: LOVENOX INJ 30 MG SYR SC SCH ×2 (10:42→22:35)
[2020-03-05] MEDS: SYNTHROID 125 mcg TAB PO SCH (06:04)
[2020-03-05] MEDS: PROVENTIL NEB TX 0.083% 2.5MG/ 3ML NEB SCH (09:15)
[2020-03-05] MEDS: PULMICORT NEB TX 0.5 MG NEB SCH (09:15)
[2020-03-05 09:32] VITALS: BP 104/65
[2020-03-05] MEDS: PEPCID TAB 40 MG PO SCH (09:39)
[2020-03-05] MEDS: LIPITOR TAB 80 MG PO SCH (09:39)
[2020-03-05] MEDS: VITAMIN A PO SCH (09:40)
[2020-03-05] MEDS: TRICOR TAB 160 MG PO SCH (09:40)
[2020-03-05] MEDS: VITAMIN D3 125 mcg (5,000 UNITS) PO SCH (09:40)
[2020-03-05] MEDS: ZINC SULFATE PO SCH (09:41)
[2020-03-05] MEDS: LOVENOX INJ 30 MG SYR SC SCH (09:41)
[2020-03-05] MEDS: VITAMIN C PO SCH (09:41)
== END 2020-03-05 11:15 | disposition home or self-care (01) | DRG 178 ==
LOC: ER 08:02 → OBS 12:04 → MED/SURG 02-28 09:28
PROVIDERS: ADMIT Obstetrics & Gynecology Obstetrics; ATTEND Obstetrics & Gynecology Obstetrics
DX: R06.02 Shortness of breath; B96.1 Klebsiella pneumoniae [K. pneumoniae] as the cause of diseases classified elsewhere; R26.89 Other abnormalities of gait and mobility; R79.82 Elevated C-reactive protein (CRP); U07.1 COVID-19; N39.0 Urinary tract infection, site not specified